=== PATIENT | female | born 1985 | race Two or more races ===

== ENCOUNTER 2018-09-09 08:45 | Emergency (ER) | payer SELFPAY ==
[~2018-09-09] VITALS: Ht 160 cm; Wt 195.0 kg
[2018-09-09] MEDS: IPRATRPIUM/ALBUTEROL 0.5/2.5MG 3 ML NEBU. NEB ONE (09:48)
[2018-09-09] MEDS: predniSONE 20 MG TABLET PO ONE (09:50)
--- NOTE | 2018-09-09 09:54 | RAD ---
Chest, 2 views, 09/09/2018: HISTORY: Shortness of breath, cough Comparison is made to a study from 01/23/2016. The heart size and pulmonary vascularity are normal. No pulmonary infiltrate is seen. There is no evidence of pleural fluid. IMPRESSION: No acute cardiopulmonary abnormality is detected. Electronically signed by: Marin Schmid MD (09/09/2018 9:51 AM) [facility]
--- NOTE | 2018-09-09 10:22 | PHYS DOC ---
Past Medical History Past Medical History: Asthma, Hypertension, Other Additional Past Medical Histor: MORBID OBESITY Past Surgical History: No Surgical History Alcohol Use: None Drug Use: None Adult General Chief Complaint Chief Complaint: ASTHMA HPI HPI Patient is a 33 year old female with history of hypertension, asthma who presents today with cough and wheezing for 3 weeks due to asthma exacerbation. Patient states she does not have any inhaler. Patient denies any chest pain or shortness of breath. Denies any fever. Review of Systems Review of Systems Constitutional: Denies fever or chills [] Eyes: Denies change in visual acuity, redness, or eye pain [] HENT: Denies nasal congestion or sore throat [] Respiratory: Reports cough and wheezing, denies shortness of breath [] Cardiovascular: No additional information not addressed in HPI [] GI: Denies abdominal pain, nausea, vomiting, bloody stools or diarrhea [] : Denies dysuria or hematuria [] Musculoskeletal: Denies back pain or joint pain [] Integument: Denies rash or skin lesions [] Neurologic: Denies headache, focal weakness or sensory changes [] All other systems were reviewed and found to be within normal limits, except as documented in this note. Current Medications Current Medications Current Medications Medications (Trade) Dose Ordered Sig/Shmuel Start Time Stop Time Status Last Admin Dose Admin Albuterol/ Ipratropium (Duoneb) 3 ml 1X ONCE 09/09/18 09:15 09/09/18 09:17 DC 09/09/18 09:48 3 ML Prednisone (Prednisone) 60 mg 1X ONCE 09/09/18 09:15 09/09/18 09:17 DC 09/09/18 09:50 60 MG Allergies Allergies Allergies Coded Allergies Type Severity Reaction Last Updated Verified No Known Drug Allergies 01/23/16 No Physical Exam Physical Exam Constitutional: Morbidly obese patient, well nourished, no acute distress, non- toxic appearance. [] HENT: Normocephalic, atraumatic, bilateral external ears normal, oropharynx moist, no oral exudates, nose normal. [] Eyes: PERRLA, EOMI, conjunctiva normal, no discharge. [] Neck: Normal range of motion, no tenderness, supple, no stridor. [] Cardiovascular:Heart rate regular rhythm, no murmur [] Lungs & Thorax: Diffuse wheezing throughout her lung bases. Abdomen: Bowel sounds normal, soft, no tenderness, no masses, no pulsatile masses. [] Skin: Warm, dry, no erythema, no rash. [] Back: No tenderness, no CVA tenderness. [] Extremities: No tenderness, no cyanosis, no clubbing, ROM intact, no edema. [] Neurologic: Alert and oriented X 3, normal motor function, normal sensory function, no focal deficits noted. [] Psychologic: Affect normal, judgement normal, mood normal. [] Current Patient Data Vital Signs Vital Signs Date Time Temp Pulse Resp B/P (MAP) Pulse Ox O2 Delivery O2 Flow Rate FiO2 09/09/18 09:48 96 Room Air 09/09/18 08:57 98.0 86 20 162/87 (112) 98.0 EKG EKG [] Radiology/Procedures Radiology/Procedures []PROCEDURE: CHEST PA & LATERAL Chest, 2 views, 09/09/2018: HISTORY: Shortness of breath, cough Comparison is made to a study from 01/23/2016. The heart size and pulmonary vascularity are normal. No pulmonary infiltrate is seen. There is no evidence of pleural fluid. IMPRESSION: No acute cardiopulmonary abnormality is detected. Electronically signed by: Marin Schmid MD (09/09/2018 9:51 AM) [facility] DICTATED and SIGNED BY: MARIN SCHMID MD DATE: 09/09/18 0950 Course & Med Decision Making Course & Med Decision Making Pertinent Labs and Imaging studies reviewed. (See chart for details) This is a 33-year-old female patient presenting to the ED today complaining of cough and wheezing due to her asthma that began 3 weeks ago. Chest x-ray interpreted by radiologist is negative for any acute findings. Patient was given a DuoNeb treatment and prednisone. O2 sats went up from 92% on room air to 96%. Patient's lungs cleared up. She states her breathing is back to baseline. She'll be discharged with prednisone, albuterol breathing treatments, Tessalon Perles and instructed to follow-up with her own PCP in the course of this week or next week. Provided return precautions and discharged in stable condition. Dragon Disclaimer Dragon Disclaimer This electronic medical record was generated, in whole or in part, using a voice recognition dictation system. Departure Departure Impression: Primary Impression: Asthma exacerbation Disposition: HOME, SELF-CARE Condition: STABLE Referrals: NO PCP (PCP) Follow-up in the course of this week or next week Patient Instructions: Asthma, Adult, [id number] Additional Instructions: You were evaluated in the emergency room for asthma exacerbation. Use the breathing treatments as prescribed. Follow-up with your own doctor next week Take the rest of the prescribed medications as ordered. Come back to the emergency room at any point symptoms worsen. Scripts Albuterol Sulfate (VENTOLIN HFA INHALER) 18 Gm Hfa.aer.ad 2 PUFF INH Q4HRS for FOR ASTHMA, #1 INHALER 0 Refills Prov: JUANY ARROYO APRN 09/09/18 Albuterol Sulfate (ALBUTEROL SULFATE NEB SOLN) 1.25 Mg/3 Ml Vial.neb 1 VIAL NEB Q4HRS, #75 ML Prov: JUANY ARROYO APRN 09/09/18 Benzonatate (TESSALON PERLE) 100 Mg Capsule 1 CAP PO TID, #30 CAP Prov: JUANY ARROYO APRN 09/09/18 Prednisone (PREDNISONE) 50 Mg Tablet 1 TAB PO DAILY, #4 TAB Prov: JUANY ARROYO APRN 09/09/18 Problem Qualifiers Primary Impression: Asthma exacerbation Asthma severity: mild Asthma persistence: intermittent Qualified Codes: J45.21 - Mild intermittent asthma with (acute) exacerbation JUANY ARROYO APRN Sep 09, 2018 10:22
[2018-09-09] MEDS ORDERED: BENZ100C PO (10:28)
[2018-09-09] MEDS ORDERED: ALBU1.25 NEB (10:28)
[2018-09-09] MEDS ORDERED: PRED50TA PO (10:28)
[2018-09-09] MEDS ORDERED: VENTOLIN HFA18 GM INH (10:28)
[2018-09-09 10:48] VITALS: BP 158/74
== END 2018-09-09 10:47 | disposition home or self-care (01) ==
LOC: ER 08:45
DX: J45.21 Mild intermittent asthma with (acute) exacerbation (principal); I10 Essential (primary) hypertension; E66.01 Morbid (severe) obesity due to excess calories; Z68.45 Body mass index [BMI] 70 or greater, adult
CPT/HCPCS: 71046; 94640; 99284; J7512; J7620

== ENCOUNTER 2019-01-21 14:35 | Emergency (ER) | payer SELFPAY ==
[~2019-01-21] VITALS: Ht 162.6 cm; Wt 186.0 kg
[~2019-01-21 14:35] MED LIST: ALBU1.25 NEB; BENZ100C PO; PRED50TA PO; VENTOLIN HFA18 GM INH
[2019-01-21 15:11] VITALS: BP 156/74
[2019-01-21 15:19] LABS: BASO % 1 % (0-3); EOS # 0.1 x10^3/uL (0.0-0.7); EOS % 2 % (0-3); HEMATOCRIT 47.9 % (36.0-47.0); HEMOGLOBIN 15.5 g/dL (12.0-15.5); LYMPH # 1.5 x10^3/uL (1.0-4.8); LYMPH % 18 % (24-48); MEAN CORPUSCULAR HEMOGLOBIN 27 pg (25-35); MEAN CORPUSCULAR HGB CONC 32 g/dL (31-37); MEAN CORPUSCULAR VOLUME 83 fL (79-100); MONO # 0.4 x10^3/uL (0.0-1.1); MONO % 5 % (0-9); NEUT # 6.2 x10^3uL (1.8-7.7); NEUT % 75 % (31-73); PLATELET COUNT 212 x10^3/uL (140-400); RED BLOOD COUNT 5.79 x10^6/uL (3.50-5.40); WHITE BLOOD COUNT 8.4 x10^3/uL (4.0-11.0)
[2019-01-21 15:20] LABS: BILIRUBIN,URINE NEGATIVE (NEG); CLARITY,URINE CLEAR; COLOR,URINE AMBER; NITRITE,URINE NEGATIVE (NEG); PH,URINE 5.5; PROTEIN,URINE NEGATIVE (NEG-TRACE); UROBILINOGEN,URINE 0.2 mg/dL (0.2 mg/dL)
[2019-01-21 15:24] LABS: CALCIUM 9.7 mg/dL (8.5-10.1); CREATININE 0.9 mg/dL (0.6-1.0); GFR 72.6; POTASSIUM 4.4 mmol/L (3.5-5.1)
[2019-01-21 15:29] LABS: HYALINE CASTS, URINE MODERATE /HPF; RBC,URINE TNTC /HPF (0-2); SQUAMOUS EPITHELIAL CELL,UR MANY /LPF
[2019-01-21 15:30] LABS: BACTERIA,URINE MODERATE /HPF (0-FEW)
[2019-01-21 15:30] LABS: ALBUMIN 3.6 g/dL (3.4-5.0); ALBUMIN/GLOBULIN RATIO 0.7 (1.0-1.7); TOTAL BILIRUBIN 0.8 mg/dL (0.2-1.0); TOTAL PROTEIN 8.8 g/dL (6.4-8.2)
--- NOTE | 2019-01-21 17:36 | RAD ---
Transabdominal and transvaginal sonography of the pelvis Clinical indications: Vaginal bleeding. Transabdominal sonography: The uterus is anteverted in position. The uterus is poorly visualized by transabdominal exam. Neither ovary is visualized. Therefore, transvaginal sonography will be performed. No adnexal mass or free fluid is evident. Transvaginal sonography: The longitudinal AP and transverse dimensions of the uterus are 6.1 cm and 2.6 cm and 2.6 cm respectively. The endometrial canal measures 5 mm in thickness which is normal. No uterine mass or fibroid is seen. No free fluid is seen within the cul-de-sac. The right ovary measures 2.6 cm and 2.1 cm and 1.1 cm and is normal. Color Doppler flow is seen within the right ovary. The left ovary is not visualized. No adnexal mass is seen. IMPRESSION: The left ovary is not visualized. Otherwise unremarkable pelvic sonogram. Electronically signed by: Jonel Khalil MD (01/21/2019 5:33 PM) [facility]
--- NOTE | 2019-01-21 17:52 | PHYS DOC ---
Past Medical History Past Medical History: Asthma, Hypertension, Other Additional Past Medical Histor: MORBID OBESITY Past Surgical History: No Surgical History Alcohol Use: None Drug Use: None Adult General Chief Complaint Chief Complaint: VAGINAL BLEEDING HPI HPI Patient is a 33 year old female who presents with vaginal bleeding x 3 weeks. She denies pain, possibility of or STD exposure. She is not soaking more than 2 Kotex per hour. Review of Systems Review of Systems Constitutional: Denies fever or chills [] Respiratory: Denies cough or shortness of breath [] Cardiovascular: No additional information not addressed in HPI [] GI: Denies abdominal pain, nausea, vomiting, bloody stools or diarrhea [] : See HPI Musculoskeletal: Denies back pain or joint pain [] Integument: Denies rash or skin lesions [] Neurologic: Denies headache, focal weakness or sensory changes [] Endocrine: Denies polyuria or polydipsia [] All other systems were reviewed and found to be within normal limits, except as documented in this note. Allergies Allergies Allergies Coded Allergies Type Severity Reaction Last Updated Verified No Known Drug Allergies 01/23/16 No Physical Exam Physical Exam Constitutional: Well developed, well nourished, no acute distress, non-toxic appearance. [] Cardiovascular:Heart rate regular rhythm, no murmur [] Lungs & Thorax: Bilateral breath sounds clear to auscultation [] Abdomen: Bowel sounds normal, soft, no tenderness, no masses, no pulsatile mas ses. [] Skin: Warm, dry, no erythema, no rash. [] Neurologic: Alert and oriented X 3, normal motor function, normal sensory function, no focal deficits noted. [] Psychologic: Affect normal, judgement normal, mood normal. [] Pelvic exam shows blood in vaginal canal, No CMT, os is closed Current Patient Data Vital Signs Lab Values Laboratory Tests Test 01/21/19 14:46 01/21/19 14:57 01/21/19 17:10 Urine Collection Type Unknown Urine Color Michelle Urine Clarity Clear Urine pH 5.5 Urine Specific [place] 1.025 Urine Protein Negative mg/dL (NEG-TRACE) Urine Glucose (UA) >=1000 mg/dL (NEG) Urine Ketones (Stick) Negative mg/dL (NEG) Urine Blood Large (NEG) Urine Nitrite Negative (NEG) Urine Bilirubin Negative (NEG) Urine Urobilinogen Dipstick 0.2 mg/dL (0.2 mg/dL) Urine Leukocyte Esterase Negative (NEG) Urine RBC Tntc /HPF (0-2) Urine WBC 1-4 /HPF (0-4) Urine Squamous Epithelial Cells Many /LPF Urine Bacteria Moderate /HPF (0-FEW) Urine Hyaline Casts Moderate /HPF Urine Mucus Marked /LPF White Blood Count 8.4 x10^3/uL (4.0-11.0) Red Blood Count 5.79 x10^6/uL (3.50-5.40) H Hemoglobin 15.5 g/dL (12.0-15.5) Hematocrit 47.9 % (36.0-47.0) H Mean Corpuscular Volume 83 fL (79-100) Mean Corpuscular Hemoglobin 27 pg (25-35) Mean Corpuscular Hemoglobin Concent 32 g/dL (31-37) Red Cell Distribution Width 14.0 % (11.5-14.5) Platelet Count 212 x10^3/uL (140-400) Neutrophils (%) (Auto) 75 % (31-73) H Lymphocytes (%) (Auto) 18 % (24-48) L Monocytes (%) (Auto) 5 % (0-9) Eosinophils (%) (Auto) 2 % (0-3) Basophils (%) (Auto) 1 % (0-3) Neutrophils # (Auto) 6.2 x10^3uL (1.8-7.7) Lymphocytes # (Auto) 1.5 x10^3/uL (1.0-4.8) Monocytes # (Auto) 0.4 x10^3/uL (0.0-1.1) Eosinophils # (Auto) 0.1 x10^3/uL (0.0-0.7) Basophils # (Auto) 0.0 x10^3/uL (0.0-0.2) Sodium Level 132 mmol/L (136-145) L Potassium Level 4.4 mmol/L (3.5-5.1) Chloride Level 95 mmol/L (98-107) L Carbon Dioxide Level 27 mmol/L (21-32) Anion Gap 10 (6-14) Blood Urea Nitrogen 17 mg/dL (7-20) Creatinine 0.9 mg/dL (0.6-1.0) Estimated GFR (Cockcroft-Gault) 72.6 BUN/Creatinine Ratio 19 (6-20) Glucose Level 363 mg/dL (70-99) H Calcium Level 9.7 mg/dL (8.5-10.1) Total Bilirubin 0.8 mg/dL (0.2-1.0) Aspartate Amino Transferase (AST) 49 U/L (15-37) H Alanine Aminotransferase (ALT) 42 U/L (14-59) Alkaline Phosphatase 104 U/L (46-116) Total Protein 8.8 g/dL (6.4-8.2) H Albumin 3.6 g/dL (3.4-5.0) Albumin/Globulin Ratio 0.7 (1.0-1.7) L Chlamydia DNA Probe Negative (Negative) Neisseria gonorrhoeae DNA Probe Negative (Negative) Laboratory Tests 01/21/19 14:57 Laboratory Tests 01/21/19 14:57 Microbiology 01/21/19 Wet Prep - Final, Complete 01/21/19 Urine Culture - Final, Complete 01/21/19 Urine Culture Result 1 (BLANCHE) - Final, Complete EKG EKG [] Radiology/Procedures Radiology/Procedures []PATIENT: LESLY DUARTEACCOUNT: [id number]#: [id number] : 1985 LOCATION: ER AGE: 33 SEX: F EXAM STATUS: REG ER ORD. PHYSICIAN: JONAH MURPHY APRN REASON: vaginal bleeding x 3 weeks PROCEDURE: PELVIS W/TV Transabdominal and transvaginal sonography of the pelvis Clinical indications: Vaginal bleeding. Transabdominal sonography: The uterus is anteverted in position. The uterus is poorly visualized by transabdominal exam. Neither ovary is visualized. Therefore, transvaginal sonography will be performed. No adnexal mass or free fluid is evident. Transvaginal sonography: The longitudinal AP and transverse dimensions of the uterus are 6.1 cm and 2.6 cm and 2.6 cm respectively. The endometrial canal measures 5 mm in thickness which is normal. No uterine mass or fibroid is seen. No free fluid is seen within the cul-de-sac. The right ovary measures 2.6 cm and 2.1 cm and 1.1 cm and is normal. Color Doppler flow is seen within the right ovary. The left ovary is not visualized. No adnexal mass is seen. IMPRESSION: The left ovary is not visualized. Otherwise unremarkable pelvic sonogram. Electronically signed by: Aline Khalil MD (01/21/2019 5:33 PM) [facility] DICTATED and SIGNED BY: ALINE KHALIL MD DATE: 01/21/19 1735 Course & Med Decision Making Course & Med Decision Making Pertinent Labs and Imaging studies reviewed. (See chart for details) [] Dragon Disclaimer Dragon Disclaimer This electronic medical record was generated, in whole or in part, using a voice recognition dictation system. Departure Departure Impression: Primary Impression: Abnormal vaginal bleeding Disposition: HOME, SELF-CARE Condition: STABLE Referrals: NO PCP (PCP) SRIDHAR SANTOS Jr, MD Patient Instructions: 1800 Calorie Diet for Diabetes Meal Planning, Dysmenorrhea Additional Instructions: Follow-up with your primary care provider for further evaluation of your blood sugar. Follow-up with gynecology for follow-up on your abnormal vaginal bleeding. If worsening return to the emergency department. Scripts Norethindrone (JACKSON) 0.35 Mg Tablet 1 TAB PO DAILY for vaginal bleeding, #28 TAB 11 Refills Prov: JONAH MURPHY APRN 01/21/19 JONAH MURPHY APRN Jan 21, 2019 17:52
[2019-01-21] MEDS ORDERED: NORE0.355 PO (17:56)
[2019-01-24 14:19] LABS: GC PROBE Negative (Negative)
== END 2019-01-21 18:07 | disposition home or self-care (01) ==
LOC: ER 14:35
DX: N93.9 Abnormal uterine and vaginal bleeding, unspecified (principal); I10 Essential (primary) hypertension; J45.909 Unspecified asthma, uncomplicated; E66.01 Morbid (severe) obesity due to excess calories; Z68.45 Body mass index [BMI] 70 or greater, adult
CPT/HCPCS: 76830; 76856; 80053; 81001; 85025; 99284; Q0111; 36415; 87086; 87491; 87591